=== PATIENT | female | born 1990 | race Two or more races ===

== ENCOUNTER 2025-08-23 17:37 | Emergency (ER) | payer OTHER, MEDICAID, SELFPAY ==
[2025-08-23 18:32] VITALS: BP 159/105; PULSE 99; RESP 18; TEMP 36.9; O2SAT 99
[2025-08-23 18:35] VITALS: BMI 38.9
--- NOTE | 2025-08-23 18:56 | XR_ITS ---
Examination: CT abdomen and pelvis without contrast. Coronal 3-D reconstructions. Sagittal 2-D reconstructions. Date and time of exam: August 23, 2025, 10:31 a.m. INDICATIONS: Burning with urination beginning 3 days ago, history kidney stones COMPARISON: July 06, 2019 CTDI: vol (mGy): 12.2 DLP: (mGycm): 682 Technique: Axial images of the abdomen have been obtained, 3 mm slice thickness Intravenous contrast material has not been administered. Low dose protocols were performed. One or more of the following dose reduction techniques were used; automated exposure control, adjustment of the mA and/or KV according to patient size, use of iterative reconstruction technique. Findings: No focal liver or splenic lesions No gallstones No pancreatic or adrenal mass No renal or ureteral calculi, no hydronephrosis Normal appendix No bowel obstruction No pelvic mass No urinary bladder wall thickening no bladder calculi IMPRESSION: No renal or ureteral calculi, no hydronephrosis Normal appendix No bowel obstruction Negative for cystitis
[2025-08-23 19:27] LABS: Basophils # (Auto) 0.0 Thou/mm3 (0.0-0.2); Basophils % (Auto) 0 % (0-2.5); Eosinophils # (Auto) 0.1 Thou/mm3 (0.0-0.5); Eosinophils % (Auto) 1 % (0-10); Hematocrit 35.9 % (36.0-46.0); Hemoglobin 11.1 g/dL (12.0-16.0); Immature Granulocytes Auto 0.03 Thou/mm3 (0.00-0.00); Lymphocytes # (Auto) 2.8 Thou/mm3 (1.0-4.8); Lymphocytes % (Auto) 26 % (10-50); Mean Corpuscular HGB Conc 30.9 g/dl (31.0-37.0); Mean Corpuscular Hemoglobin 25.8 pg (25.0-35.0); Mean Corpuscular Volume 83 fL (80-100); Monocytes # (Auto) 0.7 Thou/mm3 (0.0-0.8); Monocytes % (Auto) 7 % (0-12); Neutrophils # (Auto) 7.1 Thou/mm3 (1.8-7.7); Neutrophils % (Auto) 66 % (37-80); Nucleated Red Blood Cell # 0.00 Thou/mm3 (0.00-0.00); Nucleated Red Blood Cell % 0 /100 WBC (0); Platelet Count 304 Thou/mm3 (140-440); RDW Standard Deviation 49.4 fL (36.4-46.3); Red Blood Count 4.31 Miln/mm3 (4.00-5.20); White Blood Count 10.8 Thou/mm3 (3.6-11.0)
[2025-08-23 19:53] LABS: Alanine Aminotransferase 40 U/L (10-49); Albumin, Serum 4.5 gm/dL (3.5-5.0); Albumin/Globulin Ratio 1.6 (1.2-2.2); Alkaline Phosphatase 93 U/L (46-116); Anion Gap 10 (7-16); Aspartate Amino Transferase 46 U/L (0-34); BUN/Creatinine Ratio 10 Ratio (12-20); Bilirubin,Total 0.2 mg/dL (0.3-1.2); Blood Urea Nitrogen 7 mg/dL (9-23); Calcium 8.8 mg/dL (8.3-10.6); Calcium (Corrected) 8.8 mg/dL (8.5-10.1); Carbon Dioxide 22.6 mMol/L (20.0-31.0); Chloride 106 mMol/L (98-107); Creatinine (Component) 0.7 mg/dL (0.6-1.3); Estimated Creatinine Clearance 124.0 mL/min (>60); Globulin 2.9 gm/dL (2.3-3.5); Glucose 97 mg/dL (74-106); Lipase 41 U/L (12-53); Osmolality,Calculated 275 (275-295); Potassium 3.6 mMol/L (3.4-5.1); Sodium 139 mMol/L (136-145); Total Protein 7.4 gm/dL (5.7-8.2); eGFR > 60 See Note
[2025-08-23 21:10] LABS: Collection Type, Urine Clean Catch
[2025-08-23 21:16] LABS: HCG Qualitative,Urine Negative
[2025-08-23 21:20] LABS: Bilirubin,Urine 1+ (Negative); Blood,Urine 3+ (Negative); Clarity,Urine Turbid (Clear/Hazy); Glucose, Urine Negative (Negative); Ketones,Urine Negative (Negative); Leukocyte Esterase,Urine Positive (Negative); Nitrite,Urine Positive (Negative); PH,Urine 6.0 (5.0-7.0); Protein,Urine 1+ (Neg - Trace); RBC,Urine 256 /hpf (0-3); Specific Gravity,Urine 1.021 (1.001-1.035); Squamous Epithelial Cell,Urine 2 /hpf (0-5); Urobilinogen,Urine 4.0 mg/dL (0.0-1.0); WBC,Urine 394 /hpf (0-5)
[2025-08-23 21:21] LABS: Color,Urine Orange (Lt Yel-Yel)
--- NOTE | 2025-08-23 23:28 | EDNOTE_ITS ---
ED Abdominal Pain RME/HPI General Chief Complaint: Urogenital-Female Stated complaint: BURNING W/ URINATION Time seen by provider: 08/23/25 18:34 Arrival date/time: 08/23/25 17:37 This is a case of 35-year-old female with no medical history came in in the emergency room due to lower abdominal pain nonradiating sharp in character associated with painful urination and blood in the urine today worsening symptoms this patient decided to sought consult here in the emergency room Limitations: no limitations Related Data Previous Rx's ?Medication ?Instructions ?Recorded acetaminophen 650 mg 650 mg PO Q6HR PRN pain #20 tabs 07/06/19 tablet,extended release ibuprofen 600 mg tablet 600 mg PO Q6H PRN pain #20 t abs 07/06/19 cephalexin 500 mg capsule 500 mg PO QID #40 caps 08/23 dicyclomine 20 mg tablet 20 mg PO TID PRN abdominal p ain 08/23/25 #20 tabs ondansetron 4 mg disintegrating 4 mg PO Q8H #20 tabs 1 10/23/24 tablet phenazopyridine 200 mg tablet 200 mg PO TID 6 doses #6 tabs 08/23/25 (Pyridium) Allergies Allergy/AdvReac Type Severity Reaction Status Date / Time No Known Allergies Allergy Verified 08/23/25 17:39 Review of Systems Review of Systems Systems Reviewed: All systems reviewed, normal except as documented Constitutional Constitutional: Reports system reviewed and no additional complaints, except as documented and Reports as per HPI ENT Ears, Nose, Mouth, and Throat: Denies dysphagia and Denies odynophagia Cardiovascular Cardiovascular: Reports system reviewed and no additional complaints, except as documented and Reports as per HPI Respiratory Respiratory: Reports system reviewed and no additional complaints, except as documented and Reports as per HPI Gastrointestinal Gastrointestinal: Reports system reviewed and no additional complaints, except as documented, Reports as per HPI, Reports abdominal pain, Denies belching, Denies bloating, Denies change in bowel habits, Denies change in stool character, Denies coffee ground emesis, Denies constipation, Denies cramping, Denies diarrhea, Denies dyspepsia, Denies dysphagia, Denies early satiety, Denies excessive flatus, Denies fecal incontinence, Denies heartburn, Denies hematemesis, Denies hematochezia, Denies loose stools, Denies melena, Reports nausea, Denies odynophagia, Denies tenesmus and Reports vomiting Genitourinary Genitourinary: Reports system reviewed and no additional complaints, except as documented, Reports as per HPI, Reports dysuria and Reports hematuria Neurologic Neurologic: Reports system reviewed and no additional complaints, except as documented and Reports as per HPI Past Medical History Past Medical History CARDIAC: Positive Hypercholesterolemia; Negative Cardiac Disorders or Congestive Heart Failure RESPIRATORY: Negative Chronic Obstructive Pulmonary Disease (COPD) or Asthma GENITOURINARY: Negative Renal Disease ENDOCRINE: Negative Diabetes Mellitus Type 1 or Diabetes Mellitus Type 2 HEMATOLOGIC: Negative Sickle Cell Disease Social History SMOKING STATUS: Never smoker SUBSTANCE USE: does not use ED Exam General Limitations: Present no limitations General appearance: Present alert, in no apparent distress and other (Patient is awake alert oriented not in distress nontoxic looking well-hydrated well- nourished) Head Head exam: Present atraumatic, normocephalic and normal inspection Eye Eye exam: Present normal appearance, PERRL and EOMI ENT ENT exam: Present normal exam, normal oropharynx and mucous membranes moist Neck Neck exam: Present normal inspection, full ROM and trachea midline; Absent tenderness, meningismus, lymphadenopathy or thyromegaly Chest Chest inspection: Present normal inspection and symmetric chest wall rise; Absent tenderness Respiratory Respiratory exam: Present normal lung sounds bilaterally; Absent respiratory distress, wheezes, stridor, accessory muscle use or prolonged expiratory phase Cardiovascular Cardiovascular exam: Present regular rate, normal rhythm and normal heart sounds; Absent bradycardia, tachycardia, irregular rhythm, systolic murmur or diastolic murmur Abdominal Exam Abdominal exam: Present soft, tenderness (Tenderness mild suprapubic area no guarding no rebound no rigidity negative psoas negative obturator negative Rovsing's no McBurney's negative Lubin sign negative CVA tenderness) and normal bowel sounds; Absent distention, guarding, rebound, rigidity, diminished bowel sounds, hyperactive bowel sounds, hypoactive bowel sounds, organomegaly, psoas sign, obturator sign, Lubin's sign, Rovsing's sign, tenderness at McBurney's Point or hernia Extremities Exam Extremities exam: Present normal inspection and full ROM Back Exam Back exam: Present normal inspection and full ROM Neurological Exam Neurological exam: Present alert, oriented X3, CN II-XII intact, normal gait and reflexes normal; Absent motor sensory deficit Psychiatric Psychiatric exam: Present normal affect and normal mood Skin Skin exam: Present warm, dry, intact, normal color and other (Excellent skin turgor) Course Quality Measures none Orders Category Date Time Status CT abdomen pelvis wo con Stat Exams 08/23/25 18:56 Completed CBC Stat Lab 08/23/25 19:04 Completed Comprehensive Metabolic Panel Stat Lab 08/23/25 19:04 Completed HCG Qualitative,Urine Stat Lab 08/23/25 20:56 Completed Lipase Stat Lab 08/23/25 19:04 Completed Urinalysis Stat Lab 08/23/25 20:56 Completed Urine Culture Stat Lab 08/23/25 23:24 Ordered HYDROcodone*/APAP 5/325 [[place] 5/325] Med 08/23/25 23:24 Discontinued 1 tab PO X1 ONE cefTRIAXone [Rocephin] 1,000 mg Med 08/23/25 23:24 Discontinued Lidocaine 1% Pf 5 ml [Xylocaine 1% Pf 5 ml] 2.1 ml IM X1 Vital Signs Vital signs: Vital Signs Temperature 98.5 F 08/23/25 18:32 Pulse Rate 99 08/23/25 18:32 Respiratory Rate 18 08/23/25 18:32 Blood Pressure 159/105 H 08/23/25 18:32 Pulse Oximetry (%) 99 08/23/25 18:32 Oxygen Delivery Method Room Air 08/23/25 18:32 Oxygen saturation is 99% on room air Abdominal Pain MDM MDM Narrative MDM Narrative:: This is a case of 35-year-old female with no medical history came in in the emergency room due to lower abdominal pain nonradiating sharp in character associated with painful urination and blood in the urine today worsening symptoms this patient decided to sought consult here in the emergency room physical examination patient is awake alert oriented not in distress nontoxic looking well-hydrated well-nourished mild tenderness on the suprapubic area no guarding no rebound no rigidity negative psoas negative straight or negative Rovsing's negative McBurney's negative Lubin sign negative CVA tenderness no signs and symptoms of sepsis dehydration or acute abdomen the rest of the physical examination neurological exam is normal and unremarkable blood test showed no leukocytosis no anemia kidney and liver function is normal no electrolyte imbalance lipase is normal urinalysis showed positive nitrite positive blood and WBC in the urine suggestive of urinary tract infection CT scan is unremarkable no kidney stone patient was given a dose of ceftriaxone IM here in the emergency room and [place] which improved and resolve the pain patient will follow-up with PCP in 2 days for reevaluation and for any worsening symptoms or any emergent concern return precaution in the ER is advised Patient was discharged with comfortable condition walking with stable gait. Patient verbalized no further complains explained diagnosis and answered patient question. Patient is comfortable with the proposed management plan including the need to follow up with his/her primary care physician and any specialist if applicable Discussed patient for any urgent condition or worsening sx, He/She needed to go to emergency room immediately or call 911. Patient acknowledge the responsibility to follow up as instructed and to monitor her/his symptoms. For any persistence of the symptoms for more than 3-5 days return precaution advised. Discussed the result of the test and was given printed discharge instruction Patient data External records reviewed:: [facility] previous records Clinical information provided by:: patient Social determinants that could affect healthcare access:: none Patient has the following chronic illnesses:: None How is presenting disease/condition affected by chronic disease/condition?: no chronic disease Evaluation data The following diagnostics were reviewed and interpreted by me:: lab results and radiology exam(s) Lab and/or radiology exams considered but not ordered:: Reviewed Interpretation Summary: Reviewed Medications / Prescriptions Medications or Prescriptions considered but not ordered:: Given Medication administrations:: Medication Administration History Discontinued Medications Hydrocodone Bitart/Acetaminophen (Hydrocodone/Apap 5/325 Tablet) 1 tab PO X1 ONE Stop: 08/23/25 23:25 Ceftriaxone Sodium 1,000 mg/ (Lidocaine HCl 2.1 ml) 0 mg IM X1 ONE Stop: 08/23/25 23:25 Given Consultations Consultation(s) initiated? (list below): No Diagnosis Differential diagnosis abdominal pain: abdominal pain, acute appendicitis, calculus of kidney and diverticulitis Most likely diagnosis given after review of the tests above:: Urinary tract infection Admission Indicated Admission indicated?: not indicated Explain why admission is indicated or not indicated:: Not indicated Admission Request Was there a request for admission?: No Admission Attestation Admission request attestation: Not indicated Disposition Plan Disposition Plan: Discharge Discharge Attestation Discharge Attestation: The patient and all family members were given an opportunity to ask questions and understood the discharge instructions. Discharge instructions specifically effects, indications for sooner follow up or return to the emergency department, and the expected course of current diagnosis. Patient condition: Stable Discharge Plan Plan Patient Disposition: HOME (Self Care) Patient condition on transfer: Stable Prescriptions/Referrals Prescriptions/Med Rec: New cephalexin 500 mg capsule 500 mg PO QID Qty: 40 0RF phenazopyridine [Pyridium] 200 mg tablet 200 mg PO TID 0 Days Qty: 6 0RF dicyclomine 20 mg tablet 20 mg PO TID PRN (Reason: abdominal pain) Qty: 20 0RF ondansetron 4 mg tablet,disintegrating 4 mg PO Q8H Qty: 20 0RF No Action acetaminophen 650 mg tablet extended release 650 mg PO Q6HR PRN (Reason: pain) Qty: 20 0RF Rx Instructions: Take 1 Tylenol with one 600 mg ibuprofen every 6 hours together ibuprofen 600 mg tablet 600 mg PO Q6H PRN (Reason: pain) Qty: 20 0RF Rx Instructions: Take 1 ibuprofen with one 650 mg Tylenol together Referrals: Leonardo Shepherd MD [Primary Care Provider, Family Practice] - In 1 week Problem List Clinical Impression: Abdominal pain, Urinary tract infection Patient/Caregiver Discharge Instructions Education Materials: Abdominal Pain, Urinary Tract Infections in Women Additional Instructions: Follow-up with your primary care physician in 2 days for reevaluation worsening symptoms or any emergent concern call 911 or go to the nearest emergency room take your medication as directed finish the course of antibiotic increase water intake keep hydrated Pedialyte Gatorade for hydration is advised Print Language: Citizen Of [place] Stand Alone Forms: [facility] Award Info., Patient Portal Info Letter PA/JULIETH Supervising Physician PA/JULIETH Supervising Physician: Dr. Rodriguez
[2025-08-23] MEDS: HYDROcodone/APAP 5/325 TABLET 1 TAB PO (23:34)
== END 2025-08-24 00:09 | disposition home or self-care (01) ==
PROVIDERS: Nurse Practitioner Family; Emergency Provider Emergency Medicine; PCP Family Medicine
DX: N39.0 Urinary tract infection, site not specified (principal); R10.30 Lower abdominal pain, unspecified
CPT/HCPCS: 36415; 74176; 80053; 81001; 81025; 83690; 85025; 87086; 96372; 99283; J0696; J3490; A9270